=== PATIENT | female | born 1985 | race Two or more races ===

== ENCOUNTER 2021-01-28 16:57 | Emergency (ER) | payer OTHER ==
[~2021-01-28] VITALS: Ht 165.1 cm; Wt 63.5 kg
[~2021-01-28 16:57] MED LIST: CEPH500 PO; Percocet 5-3251 EACH PO; Pyridium200 MG PO
== END 2021-01-28 18:50 | disposition home or self-care (01) ==
LOC: ER 16:57
DX: U07.1 COVID-19 (principal)
CPT/HCPCS: J1885; J7030

== ENCOUNTER 2021-04-22 08:25 | Emergency (ER) | payer OTHER ==
[~2021-04-22] VITALS: Ht 165.1 cm; Wt 68.0 kg
[2021-04-22] MEDS ORDERED: Roxicodone5 MG PO (09:18)
[2021-04-22] MEDS ORDERED: Voltaren100 GM TOP (09:18)
== END 2021-04-22 09:52 | disposition home or self-care (01) ==
LOC: ER 08:25
DX: M25.512 Pain in left shoulder (principal); Z88.5 Allergy status to narcotic agent
CPT/HCPCS: 96372; 99283-25; J3301

== ENCOUNTER 2022-06-03 21:23 | Emergency (ER) | payer OTHER ==
[~2022-06-03] VITALS: Ht 165.1 cm; Wt 63.5 kg
[~2022-06-03 21:23] MED LIST changes: +CYCL10 PO; +LIDO700A20 TOP; +Roxicodone5 MG PO; +Voltaren100 GM TOP
[2022-06-03] MEDS ORDERED: Norco 5-325 Ta1 EACH PO (21:58)
== END 2022-06-03 22:14 | disposition home or self-care (01) ==
LOC: ER 21:23
DX: M25.551 Pain in right hip (principal); J45.909 Unspecified asthma, uncomplicated; Z96.643 Presence of artificial hip joint, bilateral; Z88.5 Allergy status to narcotic agent; Z79.899 Other long term (current) drug therapy
CPT/HCPCS: 73502; A9270

== ENCOUNTER 2022-06-21 12:57 | Emergency (ER) | payer OTHER ==
[~2022-06-21] VITALS: Ht 165.1 cm; Wt 68.0 kg
[~2022-06-21 12:57] MED LIST changes: +Norco 5-325 Ta1 EACH PO
== END 2022-06-21 15:34 | disposition home or self-care (01) ==
LOC: ER 12:57
DX: S60.112A Contusion of left thumb with damage to nail, initial encounter (principal); W23.0XXA Caught, crushed, jammed, or pinched between moving objects, initial encounter
CPT/HCPCS: 11740; 73140; 99283-25

== ENCOUNTER 2023-07-06 12:39 | Emergency (ER) | payer OTHER ==
[~2023-07-06] VITALS: Ht 170.2 cm; Wt 74.8 kg
[2023-07-06 13:32] VITALS: BP 174/111
[2023-07-06] MEDS ORDERED: Ketorolac Tromethamine 10 MG Tab PO ONE (15:00)
[2023-07-06] MEDS ORDERED: LIDO700A20 TOP (16:51)
== END 2023-07-06 17:00 | disposition home or self-care (01) ==
LOC: ER 12:39
DX: M54.12 Radiculopathy, cervical region (principal); M54.50 Low back pain, unspecified; G89.29 Other chronic pain
CPT/HCPCS: 70490; 99283-25; A9270